=== PATIENT | female | born 1945 | race Caucasian/White ===

== ENCOUNTER → 2019-08-29 07:40 | Outpatient (CLI) | payer MEDICARE, SELFPAY ==
--- NOTE | ~2019-08-29 | MM_ITS ---
EXAMINATION: MM screening [facility] BI w laura HISTORY: Screening mammogram TECHNIQUE: Craniocaudal and mediolateral oblique 3-D tomosynthesis images were obtained and synthetic 2-D images were generated. CAD analysis was submitted and interpreted. COMPARISON: 06/25/2018, 06/01/2017, 11/03/2015, 01/29/2014 BREAST PARENCHYMAL COMPOSITION: The breasts are heterogeneously dense, which may obscure small masses . FINDINGS: There is no evidence of suspicious mass, calcification, or architectural distortion to sugg est malignancy in either breast. There has been no suspicious interval change. IMPRESSION: 1. No mammographic evidence of malignancy. 2. Recommend routine screening mammography in one year. BI-RADS Category 1: Negative Reviewed, dictated and finalized at location A. ENT CASE COORDINATOR
== END ==
PROVIDERS: PCP Internal Medicine; Visit Provider Internal Medicine
DX: Z12.31 Encounter for screening mammogram for malignant neoplasm of breast (principal)
CPT/HCPCS: 77063; 77067

== ENCOUNTER 2020-03-21 16:48 | Emergency (ER) | payer MEDICARE, SELFPAY ==
--- NOTE | ~2020-03-21 | XR_ITS ---
EXAMINATION: XR chest 2V DATE: 03/21/2020 17:31 INDICATION: Palpitations. TECHNIQUE: Frontal and lateral views of the chest were obtained. COMPARISON: None. FINDINGS: The chest demonstrates clear lungs without pneumonia, pleural effusion, or pneumothorax. Th e heart size is normal. There is a suture anchor in right humeral head. IMPRESSION: 1. No acute cardiopulmonary disease. Reviewed, dictated and finalized at location A.
--- NOTE | 2020-03-21 16:51 | ECG_ITS ---
Measurements Intervals Ayden Rate: 58 P: 50 NM: 164 QRS: -24 QRSD: 86 T: 32 QT: 411 QTc: 407 Interpretive Statements SINUS BRADYCARDIA BASELINE ARTIFACT- I, III, AVL, AVF, V2 BORDERLINE ECG Electronically Signed On 03-21-2020 21:55:05 CDT by Kyle Vuong D.O.
[2020-03-21 16:58] VITALS: BP 153/61; PULSE 56; RESP 20; TEMP 36.7; O2SAT 98
[2020-03-21 17:12] LABS: Basophils Absolute Auto 0.1 K/mm3 (0.0-0.1); Basophils Percent Auto 0.6 % (0.2-1.2); Eosinophils Absolute Auto 0.2 K/mm3 (0-0.3); Eosinophils Percent Auto 2.1 % (0-4.4); Hemoglobin 11.8 g/dL (12.0-15.0); Immature Granulocyte Absolute 0.03 K/mm3 (0.00-0.031); Immature Granulocyte Percent A 0.3 % (0-0.5); Lymphocytes Absolute Auto 2.44 K/mm3 (0.9-3.2); Mean Corpuscular HGB Conc 31.9 g/dl (32-36); Mean Corpuscular Hemoglobin 25.7 pg (26-34); Mean Corpuscular Volume 80.6 fl (80-100); Mean Platelet Volume 10.7 fl (7.4-10.4); Monocytes Absolute Auto 0.6 K/mm3 (0.1-0.6); Monocytes Percent Auto 7.2 % (2.6-8.5); Neutrophils Absolute Auto 5.4 K/mm3 (1.3-6.7); Neutrophils Percent Auto 61.8 % (45.5-73.1); Platelet Count Result 238 k/mm3 (150-375); Red Blood Count 4.59 M/mm3 (4.2-5.4); Red Cell Distribution Width 15.5 % (11.5-14.5); White Blood Count 8.7 K/mm3 (4.5-10.0)
[2020-03-21 17:23] LABS: Anion Gap 8 mmol/L (8-16); Blood Urea Nitrogen 20 mg/dL (7-17); Calcium 8.6 mg/dL (8.4-10.2); Carbon Dioxide 27 mmol/L (22-30); Chloride 102 mmol/L (98-107); Estimated CRCL calculation 49 ml/min; Estimated Glomerular Filt Rate > 60; Glucose 97 mg/dL (65-105); Magnesium 2.2 mg/dL (1.6-2.3); Potassium 4.1 mmol/L (3.4-5.0); Sodium 137 mmol/L (137-145)
--- NOTE | 2020-03-21 17:43 | ED.ARRPALP ---
HPI - Arrhythmia/Palpitations General Chief Complaint: Arrhythmia/Palpitations Stated Complaint: my heart is racing Time Seen by Provider: 03/21/20 16:57 History of Present Illness HPI narrative: Patient is a 75-year-old female who presents to the ER with sensation of palpitations. Occurring over the last 5 days. Feels like her heart is beating hard and beating fast. No fevers or chills or sweats. Intermittent in nature. Worsened today after her sister was admitted to the hospital. Reports increased stress at home due to her home renovations and sick family. No worsening with exertion. Related Data Home Medications Medication Instructions Recorded Confirmed No Home Medications 03/21/20 03/21/20 Allergies Allergy/AdvReac Type Severity Reaction Status Date / Time No Known Allergies Allergy Verified 03/21/20 17:30 Review of Systems Review of Systems: All systems reviewed & are unremarkable except as noted in HPI and below Constitutional: Constitutional: Denies chills, Denies fever(s) and Denies weakness ENT: Denies nasal congestion and Denies sore throat Cardiovascular: Cardiovascular: Denies chest pain, Reports rapid heart rate and Denies radiating jaw, neck or arm pain Respiratory: Respiratory: Denies cough, Denies dyspnea and Denies wheezing Psychiatric: Psychiatric: Reports anxiety and Denies depression PMFSH Past Medical History Medical History (Updated 03/21/20 @ 17:49 by Drew Ovideo MD) Other and unspecified hyperlipidemia Overflow stress urinary incontinence in female Surgical History Surgical History (Updated 03/21/20 @ 17:46 by Drew Oviedo MD) H/O shoulder surgery Social History Social History Smoking status: Never smoker Second hand tobacco smoke exposure: No Smoking end date: 07/09/91 Alcohol intake: current Gender identity (if verbalized by the patient): Female Exam Narrative: Exam Narrative: GENERAL: Well-appearing, well-nourished, and in no acute distress. HEAD: Normocephalic, atraumatic. ENT: Mucous membranes moist. CHEST: Clear to auscultation. No respiratory distress. HEART: Regular rate and rhythm. Normal peripheral pulses. EXTREMITIES: Normal range of motion. No edema. SKIN: Warm, dry, no rash. NEURO: Alert and oriented x3. PSYCH: Normal mood and affect. Course Course Emergency Course: Patient symptoms may be a manifestation of stress and anxiety. Discussed this with patient. Recommend follow-up with PCP. Should symptoms persist she should obtain an outpatient Holter monitor. Vital Signs Vital signs: Vital Signs Temperature 98.1 F 03/21/20 16:58 Pulse Rate 56 L 03/21/20 16:58 Respiratory Rate 20 03/21/20 16:58 Blood Pressure 153/61 H 03/21/20 16:58 Pulse Oximetry 98 03/21/20 16:58 Temperature 98.1 F 03/21/20 16:58 Pulse Rate 56 L 03/21/20 16:58 Respiratory Rate 03/21/20 16:58 Blood Pressure 153/61 H 03/21/20 16:58 Pulse Oximetry 98 03/21/20 16:58 MDM - Arrhythmia/Palpitations Lab Data Result diagrams: 03/21/20 17:04 03/21/20 17:04 Labs: Lab Results 03/21/20 03/21/20 Range/Units 17:04 17:04 WBC 8.7 (4.5-10.0) K/mm3 RBC 4.59 (4.2-5.4) M/mm3 Hgb 11.8 L (12.0-15.0) g/dL Hct 37.0 (37.0-47.0) % MCV 80.6 (80-100) fl MCH 25.7 L (26-34) pg MCHC 31.9 L (32-36) g/dl RDW 15.5 H (11.5-14.5) % Plt Count 238 (150-375) k/mm3 MPV 10.7 H (7.4-10.4) fl Immature Gran % (Auto) 0.3 (0-0.5) % Neut % (Auto) 61.8 (45.5-73.1) % Lymph % (Auto) 28.0 (18.3-44.2) % Harnett % (Auto) 7.2 (2.6-8.5) % Eos % (Auto) 2.1 (0-4.4) % Baso % (Auto) 0.6 (0.2-1.2) % Lymph # (Auto) 2.44 (0.9-3.2) K/mm3 Harnett # (Auto) 0.6 (0.1-0.6) K/mm3 Eos # (Auto) 0.2 (0-0.3) K/mm3 Baso # (Auto) 0.1 (0.0-0.1) K/mm3 Abs Immat Gran (auto) 0.03 (0.00-0.031) K/mm3 Absolute Miryam
[2020-03-21 17:52] VITALS: BP 135/49; PULSE 57; RESP 18; O2SAT 96
[2020-03-21 18:00] VITALS: BP 125/80; PULSE 61; RESP 15; O2SAT 98
== END 2020-03-21 18:01 | disposition home or self-care (01) ==
PROVIDERS: Emergency Provider Emergency Medicine; PCP Internal Medicine
DX: F41.9 Anxiety disorder, unspecified (principal); R00.2 Palpitations; E78.5 Hyperlipidemia, unspecified
CPT/HCPCS: 36415; 71046; 80048; 83735; 85025; 93005; 99283

== ENCOUNTER 2020-06-08 17:23 | Outpatient (CLI) | payer MEDICARE, SELFPAY ==
--- NOTE | ~2020-06-08 | US_ITS ---
EXAMINATION: US venous doppler [facility] DATE: 06/08/2020 17:57 INDICATION: Left lower limb swelling TECHNIQUE: Grayscale ultrasound images without and with compression and Doppler ultrasound images of the left lower extremity veins were obtained. COMPARISON: None. FINDINGS: The visualized portions of left common femoral vein, profunda (deep) femoral vein, femoral vein, popl iteal vein, peroneal veins, posterior tibial veins, gastrocnemius vein and greater saphenous vein out flow are patent. IMPRESSION: 1. No deep venous thrombosis in the left lower limb. Reviewed, dictated and finalized at location A. HALMIC SURGEON
== END 2020-06-08 17:24 | disposition home or self-care (01) ==
PROVIDERS: PCP Internal Medicine; Visit Provider Specialist
DX: R60.0 Localized edema (principal)
CPT/HCPCS: 93971

== ENCOUNTER → 2020-11-15 15:14 | Outpatient (CLI) | payer MEDICARE, SELFPAY ==
--- NOTE | ~2020-11-15 | DEXA_ITS ---
Bone Density Report Name: Coco Kline Age: 75 Sex: Female Ethnicity: White Date of : 1945 Indication: postmenopausal; screening for osteoporosis; parental hip fracture; hysterectomy; Referring Provider: [place] FINN Study: Bone densitometry was performed. Exam Date: November 15, 2020 Accession number: [id number] Bone Density: Region BMD T-score Z-score Classification AP Spine (L1-L4) 0.977 -0.6 1.7 Normal Femoral Neck (Left) 0.893 0.4 2.5 Normal Total Hip (Left) 1.026 0.7 2.5 Normal Femoral Neck (Right) 0.896 0.4 2.5 Normal Total Hip (Right) 1.054 0.9 2.7 Normal Total Hip Mean 1.040 0.8 2.6 Normal World Health Organization criteria for BMD impression classify patients as: Normal (T-score at or above -1.0), Osteopenia (T-score between -1.0 and -2.5), or Osteoporosis (T-score at or below -2.5). 10-year Fracture Risk: FRAX not reported because: All T-scores for Spine Total, Hip Total, Femoral Neck at or above -1.0 Previous Exams: Region Exam Age BMD T-score BMD Change BMD Change Date g/cm2 vs Baseline vs Previous AP Spine(L1-L4) 11/15/2020 75 0.977 -0.6 0.051 0.019 05/29/2018 73 0.958 -0.8 0.032 0.014 11/05/2009 64 0.944 -0.9 0.018 0.018 12/18/2002 57 0.925 -1.1 Total Hip(Left) 11/15/2020 75 1.026 0.7 -0.043 -0.044* 05/29/2018 73 1.070 1.1 0.001 -0.017 11/05/2009 64 1.087 1.2 0.018 0.018 12/18/2002 57 1.069 1.0 Total Hip(Right) 11/15/2020 75 1.054 0.9 -0.037 -0.055* 05/29/2018 73 1.109 1.4 0.018 -0.002 11/05/2009 64 1.110 1.4 0.019 0.019 12/18/2002 57 1.091 1.2 *Denotes significance at 95% confidence level, LSC for AP Spine = 0.022 g/cm2, LSC for Total Hip = 0.027 g/cm2 Clinical Information Provided by Patient: Parent has had a hip fracture Has used the following medications: Calcium Has the following medical conditions: Hysterectomy Patient maximum height was 65 Menopause Age: 50 Drinks caffeinated beverages Onset of menses at age 14 Number of children 0 Impression: The patient has normal bone mass. The patient has risk factors, including: parental hip fracture. The BMD for the Total Hip(Left) decreased, changing by -0.044 since the last DXA exam. The BMD for the Total Hip(Right) decreased, joel
--- NOTE | ~2020-11-15 | MM_ITS ---
EXAMINATION: MM screening [facility] BI w laura HISTORY: Screening mammogram TECHNIQUE: Craniocaudal and mediolateral oblique 3-D tomosynthesis images were obtained and synthetic 2-D images were generated. CAD analysis was submitted and interpreted. COMPARISON: 08/29/2019, 06/25/2018, 06/01/2017 BREAST PARENCHYMAL COMPOSITION: The breasts are heterogeneously dense, which may obscure small masses . FINDINGS: There is no evidence of suspicious mass, calcification, or architectural distortion to sugg est malignancy in either breast. There has been no suspicious interval change. IMPRESSION: 1. No mammographic evidence of malignancy. 2. Recommend routine screening mammography in one year. BI-RADS Category 1: Negative Reviewed, dictated and finalized at location A.
== END ==
PROVIDERS: Visit Provider Internal Medicine
DX: Z12.31 Encounter for screening mammogram for malignant neoplasm of breast (principal); Z78.0 Asymptomatic menopausal state
CPT/HCPCS: 77063; 77067; 77080

== ENCOUNTER → 2022-03-06 10:23 | Outpatient (CLI) | payer MEDICARE, SELFPAY ==
--- NOTE | ~2022-03-06 | MM_ITS ---
EXAMINATION: MM screening [facility] BI w laura HISTORY: Screening mammogram TECHNIQUE: Craniocaudal and mediolateral oblique 3-D tomosynthesis images were obtained and synthetic 2-D images were generated. CAD analysis was submitted and interpreted. COMPARISON: 11/15/2020, 08/29/2019, 06/25/2018 BREAST PARENCHYMAL COMPOSITION: The breasts are heterogeneously dense, which may obscure small masses . FINDINGS: There is no suspicious mass, calcification, or architectural distortion to suggest malignan cy in either breast. There has been no suspicious interval change. IMPRESSION: 1. No mammographic evidence of malignancy. 2. Recommend routine screening mammography in one year. BI-RADS Category 1: Negative Reviewed, dictated and finalized at location A.
== END ==
PROVIDERS: PCP Family Medicine; Visit Provider Internal Medicine
DX: Z12.31 Encounter for screening mammogram for malignant neoplasm of breast (principal)
CPT/HCPCS: 77063; 77067

== ENCOUNTER 2022-06-13 15:29 | Outpatient (CLI) | payer MEDICARE, SELFPAY ==
--- NOTE | ~2022-06-13 | XR_ITS ---
EXAMINATION: XR chest 2V 06/13/2022 15:53 INDICATION: Upper respiratory infection PROCEDURE: 2 view chest COMPARISON: 03/21/2020 FINDINGS: The lungs are clear. The cardiomediastinal silhouette is within normal limits. There are no pleural effusions. There is no pneumothorax suspected. The lungs are hyperinflated which is cons istent with, but not diagnostic of chronic obstructive pulmonary disease. IMPRESSION: 1: NO ACUTE CARDIOPULMONARY DISEASE. Reviewed, dictated and finalized at location A. STAMPER
[2022-06-13 16:54] LABS: Influenza A QL RT-PCR Negative (Negative); Influenza B QL RT-PCR Negative (Negative); SARS-CoV-2 RNA PCR Negative
== END 2022-06-13 15:30 | disposition home or self-care (01) ==
PROVIDERS: PCP Family Medicine; Visit Provider Family Medicine
DX: J39.8 Other specified diseases of upper respiratory tract (principal); R68.89 Other general symptoms and signs
CPT/HCPCS: 71046; 87636

== ENCOUNTER → 2023-05-22 10:17 | Outpatient (CLI) | payer MEDICARE, SELFPAY ==
--- NOTE | ~2023-05-22 | MM_ITS ---
EXAMINATION: MM screening [facility] BI w laura HISTORY: Screening mammogram TECHNIQUE: Craniocaudal and mediolateral oblique 3-D tomosynthesis images were obtained and synthetic 2-D images were generated. CAD analysis was submitted and interpreted. COMPARISON: 03/06/2022, 11/15/2020, 08/29/2019 BREAST PARENCHYMAL COMPOSITION: The breasts are heterogeneously dense, which may obscure small masses . FINDINGS: No suspicious mass, calcification, or architectural distortion are identified in either roni ast to suggest malignancy. There has been no suspicious interval change. IMPRESSION: 1. No mammographic evidence of malignancy. 2. Recommend routine screening mammography in one year. BI-RADS Category 1: Negative Reviewed, dictated and finalized at location A. SAW OPERATOR
== END ==
PROVIDERS: PCP Family Medicine; Visit Provider Family Medicine
DX: Z12.31 Encounter for screening mammogram for malignant neoplasm of breast (principal)
CPT/HCPCS: 77063; 77067

== ENCOUNTER 2023-10-29 12:33 | Emergency (ER) | payer MEDICARE, SELFPAY ==
[2023-10-29 13:03] VITALS: BP 140/56; PULSE 85; RESP 16; TEMP 36.4; O2SAT 100
--- NOTE | 2023-10-29 14:12 | ED.GENADULT ---
HPI - General Adult General Chief complaint: Nausea/Vomiting/Diarrhea <Kayleen Kinney November, - Last Filed: 10/29/23 19:16> Stated complaint: N/V/D <Kayleen Kinney November, - Last Filed: 10/29/23 19:16> Time Seen by Provider: 10/29/23 14:12 <Kayleen Kinney November, - Last Filed: 10/29/23 19:16> Focused HPI: Coco Kline is a 78 y/o female who presents with complaints of nausea/vomiting/ diarrhea that woke her up out of her sleep today at 0200. She reports she felt well yesterday. Denies any known fever/ chills She reports generalized abdominal soreness/ No gross blood in vomit or stool GENERAL: in no acute distress. HEAD: Normocephalic, atraumatic. CHEST: Clear to auscultation. ?No respiratory distress. HEART: Regular rate and rhythm.? NEURO: ?Alert and oriented x3. Patient screened in triage and initial orders placed.? ?Additional care and disposition to be based upon?diagnostic testing and treatment. <Kayleen Kinney November, - Last Filed: 10/29/23 19:16> History of Present Illness HPI narrative: Agree with above HPI. Symptoms resolved at this time. No known sick contacts. No recent antibiotic usage. <Drew Oviedo MD - Last Filed: 10/29/23 18:26> Related Data Home medications: Home Medications Medication Instructions Recorded Confirmed multivitamin (Daily Multi-Vitamin 1 tablet PO DAILY 06/15/20 10/11/23 tablet) terbinafine HCl 250 mg tablet 250 mg PO DAILY 12/14/21 10/11/23 olmesartan 20 mg tablet 20 mg PO DAILY 10/11/23 10/11/23 <Kayleen Kinney November, - Last Filed: 10/29/23 19:16> Allergies/adverse reactions: Allergies Allergy/AdvReac Type Severity Reaction Status Date / Time No Known Allergies Allergy Verified 10/11/23 08:02 <Kayleen Kinney November, - Last Filed: 10/29/23 19:16> Review of Systems Review of Systems: All systems reviewed & are unremarkable except as noted in HPI and below <Drew Oviedo MD - Last Filed: 10/29/23 18:26> Constitutional: Constitutional: Reports no additional constitutional complaints <Drew Oviedo MD - Last Filed: 10/29/23 18:26> ENT: Reports system reviewed and no additional complaints, except as documented <Drew Oviedo MD - Last Filed: 10/29/23 18:26> Cardiovascular: Cardiovascular: Reports no additional cardiovascular complaints <Drew Oviedo MD - Last Filed: 10/29/23 18:26> Gastrointestinal: Gastrointestinal: Denies abdominal pain, Reports diarrhea, Reports nausea and Reports vomiting <Drew Oviedo MD - Last Filed: 10/29/23 18:26> Genitourinary: Genitourinary: Reports no additional female genitourinary complaints <Drew Oviedo MD - Last Filed: 10/29/23 18:26> Musculoskeletal: Musculoskeletal: Reports no additional musculoskeletal complaints <Drew Oviedo MD - Last Filed: 10/29/23 18:26> [facility] Past Medical History Medical History: Medical History (Updated 10/29/23 @ 18:25 by Drew Oviedo MD) Achilles tendinosis of left lower extremity Edema, leg History of adverse reaction to anesthesia Hypertension Other and unspecified hyperlipidemia Overflow stress urinary incontinence in female Retrocalcaneal bursitis <Kayleen Bee APRN - Last Filed: 10/29/23 19:16> Surgical History Surgical History: Surgical History (Updated 10/11/23 @ 08:06 by Ibis Hou CMA) H/O shoulder surgery 2017-Dr. Denilson Wan both shoulders <Kayleen Bee APRN - Last Filed: 10/29/23 19:16> Family History Family History: Family History Sibling Patient's sister is in good health <Kayleen Bee APRN - Last Filed: 10/29/23 19:16> Social History Social History: Social History (Updated 10/11/23 @ 08:07 by Ibis Hou CMA) Smoking packs per day: 1 Smoking cigarettes per day: 20.0 Years smoked: 26 Smoking pack-years: 26.00 Smoking status: Never smoker Second hand tobacco smoke exposure: No Smoking end
[2023-10-29] MEDS: ONDANSETRON INJ 4 MG/2 ML VIAL IV PUSH (14:37)
[2023-10-29] MEDS: FAMOTIDINE 20 MG/2 ML VIAL IV PUSH (14:40)
[2023-10-29 14:43] LABS: Glucose Point of Care 103 mg/dl (65-105)
[2023-10-29 14:46] LABS: Basophils Percent Auto 0.2 % (0.2-1.2); Eosinophils Absolute Auto 0.1 K/mm3 (0-0.3); Eosinophils Percent Auto 0.9 % (0-4.4); Hemoglobin 13.5 g/dL (12.0-15.0); Immature Granulocyte Absolute 0.02 K/mm3 (0.00-0.031); Immature Granulocyte Percent A 0.2 % (0-0.5); Lymphocytes Percent Auto 4.4 % (18.3-44.2); Mean Corpuscular HGB Conc 32.1 g/dl (32-36); Mean Corpuscular Hemoglobin 28.2 pg (26-34); Mean Corpuscular Volume 87.9 fl (80-100); Mean Platelet Volume 10.3 fl (7.4-10.4); Monocytes Absolute Auto 0.2 K/mm3 (0.1-0.6); Monocytes Percent Auto 2.4 % (2.6-8.5); Neutrophils Absolute Auto 8.3 K/mm3 (1.3-6.7); Neutrophils Percent Auto 91.9 % (45.5-73.1); Platelet Count Result 211 k/mm3 (150-375); Red Blood Count 4.78 M/mm3 (4.2-5.4); Red Cell Distribution Width 12.7 % (11.5-14.5)
[2023-10-29 15:12] LABS: Lactic Acid Reflex 1.5 mmol/L (0.7-2.0)
[2023-10-29 15:13] LABS: Alanine Aminotransferase 22 U/L (6-35); Albumin Level 4.4 g/dL (3.5-5.1); Alkaline Phosphatase 81 U/L (38-126); Anion Gap 5 mmol/L (4-12); Aspartate Amino Transferase 30 U/L (14-36); Bilirubin,Total 0.9 mg/dL (0.2-1.3); Blood Urea Nitrogen 16 mg/dL (7-17); Calcium 8.8 mg/dL (8.4-10.2); Carbon Dioxide 29 mmol/L (22-30); Chloride 103 mmol/L (98-107); Estimated CRCL calculation 61 ml/min; Estimated Glomerular Filt Rate > 60; Glucose 124 mg/dL (65-110); Lipase 40 U/L (23-300); Potassium 4.1 mmol/L (3.4-5.0); Sodium 137 mmol/L (137-145)
[2023-10-29] MEDS: SODIUM CHLORIDE 0.9% IV 1,000 ML 999 ML IV CONT (18:02)
[2023-10-29 18:04] VITALS: BP 145/52; PULSE 75; RESP 18; TEMP 36.6; O2SAT 98
[2023-10-29 18:06] VITALS: BP 145/52; PULSE 64; RESP 14; TEMP 36.8; O2SAT 99
[2023-10-29 18:52] LABS: Appearance Urine Clear (Clear); Bacteria Urine 1+ /hpf; Bilirubin Urine 1+ (Negative); Blood Urine Negative (Negative); Color Urine Dark Yellow (Yellow); Glucose Urine UA Negative (Negative); Ketones Urine Trace mg/dL (Negative); Leukocyte Esterase Ur 1+ LEU/UL (Negative); Nitrate Urine Negative (Negative); Non Pathogenic Casts 0-2; Protein Urine Trace mg/dL (Negative); RBC Urine 0-2 /hpf (0-2); Squamous Epithelial Cell Urine None Seen /hpf (Few); Urobilinogen Urine 0.2 mg/dL (<2.0); pH Urine 5.5 (5.0-9.0)
--- NOTE | 2023-10-29 19:08 | PC.NURSE ---
No emesis or diarrhea during stay in ER, pt voices nausea improved
[2023-10-29 19:09] LABS: Add Urine Microscopic? YES
[2023-10-29 19:18] VITALS: BP 146/78; PULSE 70; RESP 16; TEMP 36.7; O2SAT 97
== END 2023-10-29 19:21 | disposition home or self-care (01) ==
PROVIDERS: Nurse Practitioner Family; Emergency Provider Emergency Medicine; PCP Family Medicine
DX: K52.9 Noninfective gastroenteritis and colitis, unspecified (principal); R82.998 Other abnormal findings in urine; I10 Essential (primary) hypertension; E78.49 Other hyperlipidemia; N39.490 Overflow incontinence; N39.3 Stress incontinence (female) (male); Z87.891 Personal history of nicotine dependence
CPT/HCPCS: 36415; 80053; 81001; 82948; 83605; 83690; 85025; 87086; 87088; 96361; 96374; 96375; 99284; J2405; J7030

== ENCOUNTER 2024-10-06 08:50 | Outpatient (CLI) | payer MEDICARE, SELFPAY ==
--- NOTE | ~2024-10-06 | DEXA_ITS ---
Bone Density Report Name: CATHIE HAMMOND Age: 79 Sex: Female Ethnicity: White Date of : 1945 Indication: postmenopausal; screening for osteoporosis; parental hip fracture; Referring Provider: AMIRAH, KUN Avila Study: Bone densitometry was performed. Exam Date: October 06, 2024 Accession number: [id number] Bone Density: Region BMD T-score Z-score Classification AP Spine(L1-L4) 0.971 -0.7 1.9 Normal Femoral Neck (Left) 0.803 -0.4 1.8 Normal Total Hip (Left) 1.002 0.5 2.5 Normal Femoral Neck (Right) 0.785 -0.6 1.7 Normal Total Hip (Right) 1.045 0.8 2.8 Normal Total Hip Mean 1.024 0.7 2.7 Normal World Health Organization criteria for BMD impression classify patients as: Normal (T-score at or above -1.0), Osteopenia (T-score between -1.0 and -2.5), or Osteoporosis (T-score at or below -2.5). 10-year Fracture Risk: FRAX not reported because: All T-scores for Spine Total, Hip Total, Femoral Neck at or above -1.0 Clinical Information Provided by Patient: Parent has had a hip fracture Patient maximum height was 65.0 Menopause Age: 51 No regular weight bearing exercise Drinks caffeinated beverages Onset of menses at age 15 Number of children 0 Impression: The patient has normal bone mass. The patient has risk factors, including: parental hip fracture. Discussion: BONE DENSITY IS ABOVE THE MINIMUM DESIRABLE LEVEL AT ALL SKELETAL SITES TESTED. This patient?s bone mineral density is above the minimum desirable level (T-score -1.0 or better) at all sites measured. The patient should follow a healthful lifestyle (good nutrition with adequate calcium and vitamin D, and appropriate weight-bearing exercise). Follow-Up: Consider repeating this study in 5 years or sooner if there is some new clinical indication. Reported by: TRIXIE on 10/06/2024 9:34:00 AM. Reviewed, dictated and finalized at location AJudy CAMARILLO
--- OUTSIDE RECORDS SUMMARY | 2024-10-06 09:29 | XMS_ITS | Clinical Summary ---
Author Organization [facility] Address [facility] [facility] [place] [address] Care Team Providers Care E Business Consultant Name Role Phone Unavailable Primary Care Provider Unavailabl e Source Comments [facility],non-owned Affiliates and Associated Physician Practices is amultiple site organization consisting of ambulatory clinics and hospital sitesin [place], [place], [place] and [place]. This disclosure is being madepursuant to the Care Everywhere program and may not contain all information available regarding this patient. Last updated 18.[facility] Allergies No known active allergies Medications * Be aware that medications may not be up to date on this document. Alwaysverify current medications with the patient. Medication Sig Dispensed Refills Start Date End Date Status VITAMIN A PO Active Solifenacin Succinate (VESICARE PO) Active atorvastatin (LIPITOR) 10 MG tablet Take 10 mg by mouth at bedtime Active benzonatate (TESSALON) 200 MG capsuleIndications :Cough Take 1 capsule by mouth 3 times daily as needed for Cough 30 capsule 07/09/2019 Active Additional Information Patient not taking.Reported on 08/24/2019 Social History Tobacco Use Types Packs/Day Years Used Date Smoking Tobacco: Never Smokeless Tobacco: Never Alcohol Use Standard Drinks/Week Comments Yes 0 (1 standard drink = 0.6 oz pur e alcohol) Sex and Gender Information Value Date Recorded Sex Assigned at Not on file Gender Identity Not on file Sexual Orientation Not on file Last Filed Vital Signs Vital Sign Reading Time Taken Comments Blood Pressure 118/72 08/24/2019 4:19 PM POLYSOMNOGRAPH TECH Pulse 74 08/24/2019 4:19 PM POLYSOMNOGRAPH TECH Temperature 37.6 C (99.7 F) 08/24/2019 4:19 PM POLYSOMNOGRAPH TECH Respiratory Rate 16 08/24/2019 4:19 PM POLYSOMNOGRAPH TECH Oxygen Saturation 98% 08/24/2019 4:19 PM POLYSOMNOGRAPH TECH Inhaled Oxygen Concentration - - Weight 83 kg (183 lb) 08/24/2019 4:19 PM POLYSOMNOGRAPH TECH Height 165.1 cm (5' 5 ) 08/24/2019 4:19 PM POLYSOMNOGRAPH TECH Body Mass Index 30.45 08/24/2019 4:19 PM POLYSOMNOGRAPH TECH Plan of Treatment Health Maintenance Due Date Last Done Comments BONE DENSITY TESTING 1945 HEPATITIS C SCREENING 01/26/1964 DTAP/TDAP/TD VACCINES (1 - Tdap) 1965 PNEUMOCOCCAL VACCINE 50+ (1 of 1 - PCV) 01/31/1996 ZOSTER VACCINE (1 of 2) 01/31/1996 Respiratory Syncytial Virus (RSV) Vaccine Pt: or over 60 yrs (1 - 1-dose 75+ series) 2021 COVID-19 VACCINE (1 - 2023- season) 2024 INFLUENZA VACCINE (#1) 2024 8, 05/14/2017, 05/13/2017, Additional history exists DEPRESSION SCREENING 07/09/2024 MEDICARE AWV CALENDAR YEAR 2024 HEPATITIS B VACCINE Aged Out No longe r eligible based on patient's age to complete this topic HIB VACCINE Aged Out No longer eligi ble based on patient's age to complete this topic HPV VACCINE Aged Out No longer eligi ble based on patient's age to complete this topic MENINGOCOCCAL (Group B) VACCINE SHARED DECISION-MAKING Aged Out No longer eligible based on patient's age to complete this topic MENINGOCOCCAL GROUPS A/C/Y/W VACCINE Aged Out No longer eligible based on patient's age to complete this topic
--- OUTSIDE RECORDS SUMMARY | 2024-10-06 09:29 | XMS_ITS | Data Portability ---
Author Organization [place] - [facility] Organizer, Main Office Address [address] [place] [address] Care Team Providers Care Electrical Maintenance Mechanic Name Role Phone KUN MACARIO Primary Care Provider KUN MACARIO Referring Provider [phone] Assessment Encounter Date Assessment Date Assessment LastModified by Organization Details LastModified Time 12/06/2022 12/06/2022 HPI: Patient returns. She is here for cortisone injection both her knees. Last shots were 3 months ago. She has moderately severe medial compartment osteoarthritis in both knees. She remains on diclofenac 75 mg b.i.d.. She feels that the shots are working well enough she is not ready to discuss any options on her knees. Physical exam: 77-year-old female alert pleasant. She walks well. She has bjtg-xz-qzrzyjpq effusions in both knees. Range motion is from 0-135 degrees bilaterally. Moderate tenderness over both medial joint lines. No swelling in either lower extremity. ChloraPrep was used on skin 20 mg Kenalog and 3 cc of 0.5% ropivacaine was injected into both knees. Risk of infection discussed. Impression: 77-year-old female who has moderately severe medial compartment osteoarthritis in both knees. She has continues to get good relief from injections. I will see her back in 3 months repeat injection. [email or web address] Not available 12/06/2022 16:42:07 Plan of Treatment Reminders Order Date Submit Date Provider Last Modified By Organization Details Last Modified Time Details Appointments None recorded. Lab None recorded. Referral None recorded. Procedures injection/a spiration joint/bursa (PROC) - in office procedure, administere d by provider 2022 023 [email or web address] In-Office Order, Internal Use Only DO Not Attach Compendium DO Not Attach Compendium, Do Not Delete/merge, [id number] 14:28:47 Surgeries None recorded. Imaging None recorded. Medication Orders Kenalog 10 mg/mL suspension for injection [address] [id number], [address] [place] [address], [id number], 3 17:02:21 ropivacaine (PF) 5 mg/mL (0.5 %) injection solution [address] [id number], [address] [facility], [place], [place], [id number], 3 17:02:21 Patient TargetsNo targets recorded. Patient InstructionsNo instructions recorded. Reason for Referral None Reported. Results Created Date Observation Date Name Description Value Unit Range Abnormal Flag Note LastModifiedBy Organization Detail LastModifiedTime 03/03/20 22 XR, hip + pelvi s, unila teral No observ ation record ed. [id number] [facility] [address], [place], [address], 09/06/2022 06:50:40 04/07/20 22 XR, knee No observ ation record ed. [id number] [facility] [place] [address] [place], [address], 09/06/2022 06:50:40 Result Notes None recorded. Problems Name Problem SNOMED Code Status Onset Date Resolution Date Notes Provider Name and Address Organization Details Recorded Time Nocturnal muscle cramp 2255703240240 Active Not Available [facility] 3 06:45:39 Abdominal pain 77759413 Active Not Available [facility] 3 06:45:39 Osteoarthr itis of knee 966080520 Active 2022 Not Available [facility] 3 06:45:39 Ecchymosis 374487990 Active Not Available [facility] 3 06:45:39 Knee pain Active Not Available [facility] 3 06:45:39 Trochanter ic bursitis of left hip 0551543531202 03 Active 2021 Not Available [facility] 3 06:45:39 Bronchitis 89683985 Active Not Available [facility] 3 06:45:39 Umbilical discharge 30791987 Active Not Available [facility] 3 06:45:39 Sinusitis 87670103 Active Not Available [facility] 3 06:45:39 Osteoarthr itis 980434060 Active Not Available [facility] 3 06:45:39 Contact dermatitis 94160663 Active Not Available [facility] 3 06:45:39 Cramp in lower limb 534693205 Active Not Available [facility] 3 06:45:39 Hip pain 00322166 Active Not Available [facility] 3 06:45:39 Upper respirator y infection 14532972 Active Not Available [facility] 3 06:45:40 Hyperlipid emia 55120005 Active Not Available [facility] 3 06:45:40 Influenza 3303452 Active Not Available [facility] 3 06:45:40 Hyperglyce shai 67138078 Active Not Available [facility] 3 06:45:40 Urge incontinen ce of urine 92973838 Active Not Available [facility] 3 06:45:40 Pain in limb 77364129 Active Not Available [facility] 3 06:45:40 Impaired glucose tolerance 7586751 Active Not Available [facility] 3 06:45:40 Problem Notes None recorded. Procedures Surgical History Date Name Laterality Status Provider Name and Address Organization Details Recorded Time procedure on shoulder completed Not Available [facility] 09/06/2022 06:42:38 Imaging Results Imaging Date Name Status LastModified by Organ atcount includes [facility] Details LastModified Time 03/03/2022 XR, hip + pelvis, unilateral completed [id number] [facility] [place] [address], [place], [address], 09/06/2022 06:50:40 04/07/2022 XR, knee completed [id number] [facility] [place] [address], [place], [address], 09/06/2022 06:50:40 Procedure Notes None recorded. Medical Equipment None Reported. Medications Name Sig Start Date Stop Date Status Note LastModified by Organization Details LastModified Time atorvastati n 20 mg tablet TAKE 1 TABLET BY MOUTH DAILY active Not Available Not Available No t Available atorvastati n 10 mg tablet TAKE 1 TABLET BY MOUTH EVERY DAY 07/08 completed Not Available Not Available Not Available azithromyci n 250 mg tablet TAKE 2 TABLETS (500 MG) BY ORAL ROUTE ONCE DAILY FOR 1 DAY THEN 1 TABLET (250 MG) BY ORAL ROUTE ONCE DAILY FOR 4 DAYS 07/08 completed Not Available Not Available Not Available benzonatate 200 mg capsule 04/07 completed Not Available Not Available Not Available meloxicam 15 mg tablet 07/25 completed Not Available Not Available Not Available amlodipine 5 mg tablet active Not Available Not Available Not Available prochlorper azine maleate 10 mg tablet TK 1 TABLET EVERY 6 HOURS NEEDED FOR NAUSEA 07/08 completed Not Available Not Available Not Available tretinoin 0.05 % topical cream APPLY PEA SIZED AMOUNT TOPICALLY TO FACE EVERY NIGHT 04/07 completed Not Available Not Available Not Available Tamiflu 75 mg capsule Take 1 capsule twice a day by oral route as directed for 5 days. active Not Available Not Available No t Available tramadol 50 mg tablet TAKE 1 TABLET PO EVERY 4-6 HOURS NEEDED FOR PAIN 07/25 completed Not Available Not Available Not Available triamcinolo ne acetonide 0.1 % topical cream 03/19 completed Not Available Not Available Not Available oxycodone-a cetaminophe n 5 mg-325 mg tablet TK 1-2 TS PO Q 4-6 H PRN P 07/08 completed Not Available Not Available Not Available terbinafine HCl 250 mg tablet TAKE 1 TABLET BY MOUTH DAILY active Not Available Not Available No t Available Kenalog 10 mg/mL suspension for injection Take 40 mg by injection route. 2022 active [facility]: 0003- [phone]- [phone] Not Available Not Available Not Available Xylocaine 20 mg/mL (2 %) injection solution In office injection administe red by the provider 04/07 completed Not Available Not Available Not Available diclofenac sodium 75 mg tablet,cyndi yed release Take 1 tablet twice a day by oral route. active Not Available Not Available No t Available mupirocin 2 % topical ointment APPLY A SMALL AMOUNT AA TID active Not Available Not Available No t Available methylpredn isolone 4 mg tablets in a dose pack Use as directed. active Not Available Not Available No t Available oxybutynin chloride 5 mg tablet TAKE 1 TABLET BY MOUTH DAILY 04/07 completed Not Available Not Available Not Available amoxicillin 875 mg-potassiu m clavulanate 125 mg tablet TAKE 1 TABLET BY MOUTH EVERY 12 HOURS active Not Available Not Available No t Available Senna-S 8.6 mg-50 mg tablet TK 2 TS PO QHS FOR 10 DAYS 07/25 completed Not Available Not Available Not Available Pneumovax-2 3 25 mcg/0.5 mL injection syringe ADM 0.5ML IM UTD 04/07 completed Not Available Not Available Not Available solifenacin 5 mg tablet Take 1 tablet every day by oral route. active Not Available Not Available No t Available Vitamin C active Not Available Not Jennifer ilable Not Available lidocaine (PF) 10 mg/mL (1 %) injection solution In office injection administe red by the provider 04/07 completed [facility]: 0409- [phone]- [phone] Not Available Not Available Not Available ropivacaine (PF) 5 mg/mL (0.5 %) injection solution Take 30 mg by injection route. 2022 active [facility] [phone] Not Available Not Available Not Available Multi Vitamin active Not Available Not Available Not Available Shingrix (PF) 50 mcg/0.5 mL intramuscul ar suspension, kit 07/08 completed Not Available Not Available Not Available Fluzone High-Dose (PF) 180 mcg/0.5 mL intramuscul ar syringe active Not Available Not Available N ot Available Fluzone High-Dose (PF) 180 mcg/0.5 mL intramuscul ar syringe ADM 0.5ML IM UTD 04/07 completed Not Available Not Available Not Available ID NOW COVID-19 Test Kit TEST DIRECTED TODAY 08/30 completed Not Available Not Available Not Available Gemtesa 75 mg tablet active Not Available Not Available No t Available Vitals Date Recorded Body height Provider Name an d Address Organization Details Last Updated DateTime 03/03/2022 165.1 cm Not Available [facility] 3 06:43:15 Date Recorded Body height Provider Name an d Address Organization Details Last Updated DateTime 04/07/2022 165.1 cm Not Available [facility] 3 06:43:15 Date Recorded Body height Provider Name an d Address Organization Details Last Updated DateTime 05/31/2022 165.1 cm Not Available [facility] 3 06:43:15 Date Recorded Body height Provider Name an d Address Organization Details Last Updated DateTime 08/30/2022 165.1 cm Not Available [facility] 3 06:43:15 Date Recorded Body height Provider Name an d Address Organization Details Last Updated DateTime 12/06/2022 165.1 cm Maureen Joiner [facility] 12/06/2022 14:25:25 Social History Question Answer Notes LastModified by Organizat ion Details LastModified Time Tobacco Smoking Status Former Smoker Not Available [facility] 09/06/2022 06:42:12 What Is Your Level Of Alcohol Consumption? 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 Mental Status None recorded. Family History Nothing Reported. Medical History Condition Response BLINDNESS N KIDNEY STONES N MRSA N CARPAL TUNNEL SYNDROME N LUNG DISEASE/DISORDER N HISTORY OF DRUG ABUSE N RADIATION / CHEMOTHERAPY N COPD N SPORTS INJURY N ANKLE PAIN N BLOOD DISEASES N SCHIZOPHRENIA N SHINGLES N BOWEL PROBLEMS N SHOULDER PAIN N DEPRESSION (INCLUDING POST ) N STROKE/TIA N KNEE PAIN N ULCERS N BENIGN PROSTATIC HYPERPLASIA N OBESITY N GERD/NAUSEA N ANEURYSM N URINARY/BLADDER/KIDNEY PROBLEMS N CORONARY ARTERY DISEASE (CAD) N ADDICTION CONCERNS N USE OF BLOOD THINNERS N SKIN PROBLEMS N EMPHYSEMA N MUSCLE,JOINT OR BONE PROBLEMS N DVT N STOMACH ULCERS N BLOOD CLOTS N USE OF NSAIDS N CONCUSSION OR SPINAL TRAUMA N NEUROPATHY N AIDS/HIV N FRACTURES N ELBOW PAIN N HYPERTENSION N TOURETTE'S N ANXIETY DISORDER N Metal allergy N BLOOD TRANSFUSION N ANEMIA/BLOOD DISORDER N BIPOLAR DISORDER N BRONCHITIS N OSTEOARTHRITIS N TUBERCULOSIS N FOOT PROBLEM N HEART VALVE DISORDERS N ALLERGIES/HAYFEVER N SOFT TISSUE INJURY N INFECTIOUS DISEASE N HEART ARRHYTHMIA N INSOMNIA N RHEUMATOID ARTHRITIS N HIGH CHOLESTEROL / HYPERLIPIDEMIA N EDEMA N CHRONIC PAIN SYNDROME N CAROTID BLOCKAGE N BACK / NECK PROBLEMS N HAVE YOU BEEN HOSPITALIZED OR SEEN IN [facility] ER IN THE PAST YEAR ? N BURSITIS N HERNIATED DISC N DIALYSIS N FIBROMYALGIA N OSTEOPOROSIS N ARTHRITIS Y NO SIGNIFICANT PAST MEDICAL HISTORY N PERIPHERAL NEUROPATHY N DIABETES, TYPE N HEARTBURN / REFLUX N HEPATITIS / LIVER DISEASE N GOUT N SLEEP DISORDER N ALZHEIMER'S DISEASE N HERPES N SEIZURES/EPILEPSY N HEADACHES/MIGRAINES N VASCULAR DISEASE N HIP PAIN N Blood Disorder N DIZZINESS N HEAD TRAUMA OR INJURY N HEART DISEASE/HEART PROBLEMS N MULTIPLE SCLEROSIS N CARDIAC ARRHYTHMIA N CANCER: SPECIFY N ANESTHESIA COMPLICATIONS N ATRIAL FIBRILLATION N AUTOIMMUNE DISEASE N Gynecological HistoryNo gynecological history recorded. Obstetrics History GPAL:G 0 P 0 0 0 0 Immunizations Vaccine Type Date Status Note Provider Nam e and Address Organization Details Recorded Time zoster live 12/09/2012 completed Not Available [facility] 09/06/2022 06:50:19 Influenza, high-dose, trivalent, PF 04/15/2015 completed Not Available [facility] 2022 06:50:19 Past Encounters Encounter ID Performer Location Encounter Start Date Encounter Closed Date Diagnosis/Indication Diagnosis SNOMED-CT Code Diagnosis ICD10 Code Diagnosis Note [id number] [facility] [address] [place] [address] 09/30/2021 00:00:00 09/30/2021 14:43:03 [id number] [facility] [address] [place] [address] 03/03/2022 00:00:00 03/03/2022 15:57:58 [id number] [facility] [place] [address] [place] [address] 04/07/2022 00:00:00 04/07/2022 11:00:40 [id number] [facility] [address] [place] [address] 05/31/2022 00:00:00 05/31/2022 10:20:39 [id number] [facility] [address] [place] [address] 08/30/2022 00:00:00 08/30/2022 14:43:37 [id number] INGA Escobedo [facility] [place] [address] [place] [address] 12/06/2022 13:58:00 12/06/2022 17:25:03 Osteoarthritis of knee 013062003 M17.0 Knee pain 97134041 M25.5 69 Health Concerns Section Related Observation LastModified by Organization Detai ls LastModified Time None Recorded Concern Status LastModified by Organization Details LastModified Time None Recorded Advance Directives Directive None Recorded Payers Encounter Date Sequence Insurance Name Policy Number Policy Youngblood Covered Member ID Youngblood Member ID Guarantor Name 12/06/2022 1 [employer] (MEDICARE REPLACEMENT PPO) [id number] 1 Coco A Reston [id number] Coco A Reston OBGyn Episode No OBEpisode recorded.
--- OUTSIDE RECORDS SUMMARY | 2024-10-06 09:29 | XMS_ITS | CONTINUITY OF CARE DOCUMENT ---
Author Name cary, cary Address Unknown Organization [facility] Address [address] [place] [address] Phone [phone] Care Team Providers Care Legal Researcher Name Role Phone Yariel Goyal MD Unavailable SCARLET JAIME MD Unavailable [phone] SCARLET JAIME MD Unavailable PROBLEMS Condition Status Date Provider Notes BRADYCARDIA, SINUS-10/18 VECHO NL EF 65 active ? Yariel Goyal MD CHEST PAIN, GHI-CCTNKEA-8/12 RT STRESS active ? Yariel Goyal MD ENCOUNTERS Date Type Provider Location Encounter Diagnosis - In-person encounter Office Visit Yariel Goyal MD [place] [facility] BRADYCARDIA, SINUS-10/18 VECHO NL EF 65CHEST PAIN, XSZ-WCJIEZY-7/12 RT STRESS - In-person encounter Office Visit Yariel Goyal MD [place] [facility] BRADYCARDIA, SINUS-412 VECHO NL EF 65 VITAL SIGNS Date Observation Value Provider blood pressure, diastolic 66 mm[Hg] Familia Mays blood pressure, systolic 119 mm[Hg] Katie Mays pulse rate 53 /min Trang Mays oxygen saturation, oximetry 99 % Trang Mays respiratory rate E&M 14 /min Trang temple weight E&M 155 [lb_av] Trang Mays blood pressure, diastolic 65 mm[Hg] Be mary Oreilly blood pressure, systolic 118 mm[Hg] Bet nahed Oreilly blood pressure, diastolic, left arm 67 mm [Hg] Sunil Adams RN blood pressure, systolic, left arm 132 mm [Hg] Sunil Adams RN blood pressure, diastolic, right arm 76 m m[Hg] Sunil Adams RN blood pressure, systolic, right arm 148 m m[Hg] Sunil Adams RN blood pressure, diastolic 67 mm[Hg] Wilberto Adams RN blood pressure, systolic 132 mm[Hg] Sunil Adams RN pulse rate 60 /min Sunil Adams RN oxygen saturation, oximetry 100 % Sunil Adams RN respiratory rate E&M 16 /min Sunil ledezma RN ALLERGIES No Known Drug Allergies HISTORY OF MEDICATION USE Medication Status Instructions Dates Provider Indications Com ments HECTOR 225 active twice daily Jaime Manacop METHYLCOBALAMIN 10MG active once daily Shola gibbons [place] CO-ENZYME Q-10 TABLET active 2 tablet b y mouth daily Trang Davon B BOOST active once daily Jaime Manacop PROTIEN + A1 DIETARY DRINK active once daily Jaime Manacop SOCIAL HISTORY Date Observation Value Provider social history reviewed E&M reviewed Sunil Adams RN smoking status quit Hailey caro social history E&M L april with family/friends M arital Status: E thnicity: Sunil Adams RN social history reviewed E&M reviewed Sunil Adams RN physical exercise, f requency, days per week no [employer] caffeine use, averag e drinks per day yes [employer] alcohol use, average drinks per day social basis only [employer] smoking status Quit [employer] FUNCTIONAL STATUS Date Observation Value Provider periodic limb movement index absent (0) Yaquelin Oreilly MENTAL STATUS Date Observation Value Provider assessment of judgme nt and insight E&M Alert and oriented to time, place and person. Mood and affect are normal. Sunil Adams RN assessment of judgme nt and insight E&M Alert and oriented to time, place and person. Mood and affect are normal. Sunil Adams RN INSURANCE PROVIDERS Payer name Policy type / Coverage type [employer] party ID [id number] OPEN ACCESS Other [id number] TREATMENT PLAN Date Name Stress Test - Routin e Complete Echo
== END 2024-10-06 08:51 | disposition home or self-care (01) ==
LOC: ANHIMG 08:56
PROVIDERS: PCP Family Medicine; Visit Provider Family Medicine
DX: Z78.0 Asymptomatic menopausal state (principal)
CPT/HCPCS: 77080